=== PATIENT | female | born 1945 | race Caucasian/White ===

== ENCOUNTER → 2017-10-28 | Outpatient (CLI) | payer MEDICARE, OTHER ==
[~2017-10-28] MED LIST: ASPIRIN81 M2 PO; BUDESONIDE0.5 MG/2 M INH; CELEXA20 MG PO; CITRUS CALCIUM1 EACH PO; CRESTOR5 MG PO; DILTIAZEM 24HR240 M2 PO; DIOVAN320 MG PO; FISH OIL 1,2001 EACH PO; LOVENOX40 MG/0.4 SC; MIRALAX17 GM PO; MULTIVITAMIN W1 EAC5 PO; NORCO 10MG-325MG1 EA PO; Z.0.ALENDRONATE SOD7 PO; Z.0.AMLODIPINE BES2. PO; Z.0.AMLODIPINE BESYL PO; Z.0.COZAAR100 MG PO; Z.0.CYMBALTA30 MG PO; Z.0.DICLOFENAC SODI7 PO; Z.0.LISINOPRIL20 MG PO; Z.0.NORCO 10-325 T1 PO; Z.0.PANTOPRAZOLE SO4 PO; Z.0.PREDNISONE10 MG PO; Z.0.SIMVASTATIN10 MG PO; Z.0.SPIRIVA18 MCG IH; Z.1.ALBUTEROL2.5 MG/ IH; [UNRECOGNIZED DRUG - CODE] IH; [UNRECOGNIZED DRUG - OTHER] IH
--- NOTE | 2017-10-28 12:56 | Diagnostic Imaging Report ---
EXAMINATION: MRI of the brain without contrast. HISTORY: Near daily persistent headaches for the last 3 months COMPARISON: None. TECHNIQUE: Sagittal T2; axial DWI, T2, FLAIR, T1-IR, T2 gradient echo; coronal FLAIR. IMAGE QUALITY: Adequate. FINDINGS: Parenchyma: 1. A few scattered white matter hyperintense foci, most likely nonspecific, chronic ischemic changes 2. No mass, hemorrhage, acute or chronic infarcts. Skull: Unremarkable. Vessels: Expected flow voids present in the major arteries and dural sinuses. Extra-axial spaces: No abnormal signal intensity or mass effect. Brain volume: Within normal limits for age. Ventricles: No hydrocephalus or displacement. Foramen magnum: Unremarkable. Sella: Unremarkable. Paranasal / mastoid sinuses: Mild mucosal inflammatory thickening of the partially visualized maxillary sinuses and left is seen in sinus, with air-fluid level within the left sphenoid sinus, which may indicate acute on chronic sinusitis IMPRESSION: 1. Mild age-appropriate chronic microvascular ischemic changes. Otherwise no intracranial abnormalities to explain the patient's symptoms. 2. Prominent left sphenoid sinusitis as detailed above. Signed by: Dr. Melyssa Ji M.D. on 10/28/2017 12:52 PM
== END ==
LOC: MRI 10:34
PROVIDERS: ATTEND Student in an Organized Health Care Education/Training Program
DX: G44.52 New daily persistent headache (NDPH) (principal)
CPT/HCPCS: 70551

== ENCOUNTER → 2018-03-27 | Outpatient (CLI) | payer MEDICARE, OTHER ==
--- NOTE | 2018-03-27 12:40 | Diagnostic Imaging Report ---
PROCEDURE:RIBS UNILAT W/CXR TECHNIQUE:PA chest with AP and oblique views left ribs INDICATION:Fall COMPARISON:None. FINDINGS: Mild central vascular congestion, cardiomegaly and tortuous thoracic aorta with calcification. Calcified right lower lobe granuloma. Minimally displaced fracture of the left fourth rib posterolateral margin. Nondisplaced left seventh rib fracture. CONCLUSION: Left fourth and seventh rib fractures. Dictated by: David Okeefe M.D. on 03/27/2018 at 12:44 Electronically approved by: David Okeefe M.D. on 03/27/2018 at 12:44
== END | disposition home or self-care (01) ==
LOC: RAD 11:41
PROVIDERS: ATTEND Family Medicine
DX: S20.219A Contusion of unspecified front wall of thorax, initial encounter (principal); S22.42XA Multiple fractures of ribs, left side, initial encounter for closed fracture; W19.XXXA Unspecified fall, initial encounter
CPT/HCPCS: 71101